=== PATIENT | female | born 1980 | race Caucasian/White ===

== ENCOUNTER 2019-08-06 10:17 | Emergency (ER) | payer BC, OTHER ==
[2019-08-06 10:26] VITALS: BP 122/82; PULSE 99; RESP 18; TEMP 97.7
[2019-08-06] MEDS ORDERED: SODIUM CHLORIDE 0.9% 1,000 ML IV STA (10:37)
[2019-08-06 11:16] LABS: Basophils % (A) 0 %; Eosinophils # (A) 0.1 k/uL (0-0.7); Eosinophils % (A) 1 %; HCT 48.2 % (34.0-46.0); HGB 16.4 gm/dL (11.4-16.0); Lymphocytes # (A) 1.8 k/uL (1.0-4.8); Lymphocytes % (A) 23 %; MCH 30.6 pg (25.0-35.0); MCHC 34.1 g/dL (31.0-37.0); MCV 89.7 fL (80.0-100.0); Monocytes # (A) 0.2 k/uL (0-1.0); Monocytes % (A) 3 %; Neutrophils # (A) 5.6 k/uL (1.3-7.7); Neutrophils % (A) 71 %; Platelet Count 235 k/uL (150-450); RBC 5.37 m/uL (3.80-5.40); RDW 12.3 % (11.5-15.5); WBC 7.8 k/uL (3.8-10.6)
--- NOTE | 2019-08-06 11:22 | ED ---
General Adult HPI - General Source: patient, RN notes reviewed Mode of arrival: wheelchair Limitations: no limitations <Chapo Henriquez - Last Filed: 08/06/19 12:38> <Shawna Mcnamara - Last Filed: 08/06/19 23:37> - General Chief complaint: Weakness Stated complaint: MRSA Time Seen by Provider: 08/06/19 10:28 - History of Present Illness Initial comments: 39-year-old female without significant past medical history presents to the emergency department for chief complaint of rash and weakness. Patient states that she has and diagnosed with MRSA on her skin. This is on her legs and abdomen. States that she saw her primary care provider who started her on an unknown antibiotic but it did not help. Patient therefore started on minocycline 4 days ago. States she still has these symptoms. States she is now having intermittent chills but denies ever checking a temperature. She is also having some nausea and vomiting and diarrhea. The symptoms are intermittently. She thinks the MRSA is making her weak. Patient would like further evaluation. Patient has no other complaints at this time including shortness of breath, chest pain, abdominal pain, headache, or visual changes.s (Chapo Henriquez) - Related Data Previous Rx's Medication Instructions Recorded Permethrin 5% Cream [Elimite] 1 applic TOPICAL ONCE #1 tube 08/06/19 Allergies Allergy/AdvReac Type Severity Reaction Status Date / Time No Known Allergies Allergy Verified 12/31/13 20:47 Review of Systems ROS Other: All systems not noted in ROS Statement are negative. <Chapo Henriquez - Last Filed: 08/06/19 12:38> ROS Other: All systems not noted in ROS Statement are negative. <Shawna Mcnamara - Last Filed: 08/06/19 23:37> ROS Statement: Those systems with pertinent positive or pertinent negative responses have been documented in the HPI. Past Medical History Additional Past Medical History / Comment(s): ovarian cancer History of Any Multi-Drug Resistant Organisms: MRSA Past Surgical History: Hysterectomy, Tubal Ligation Smoking Status: Current every day smoker Past Alcohol Use History: None Reported Past Drug Use History: Marijuana <Chapo Henriquez - Last Filed: 08/06/19 12:38> General Exam Limitations: no limitations General appearance: alert, in no apparent distress Head exam: Present: atraumatic, normocephalic, normal inspection Eye exam: Present: normal appearance ENT exam: Present: normal exam, mucous membranes moist Neck exam: Present: normal inspection. Absent: tenderness, meningismus, lymphadenopathy Respiratory exam: Present: normal lung sounds bilaterally. Absent: respiratory distress, wheezes, rales, rhonchi, stridor Cardiovascular Exam: Present: regular rate, normal rhythm, normal heart sounds. Absent: systolic murmur, diastolic murmur, rubs, gallop, clicks GI/Abdominal exam: Present: soft, normal bowel sounds. Absent: distended, tenderness, guarding, rebound, rigid Skin exam: Present: other (Small erythematous excoriations noted on abdomen as well as legs. No evidence of abscesses. No purulent drainage.) <Chapo Henriquez - Last Filed: 08/06/19 12:38> Course Vital Signs 08/06/19 10:18 Temperature 97.7 F Pulse Rate 99 Respiratory 18 Rate Blood Pressure 122/82 O2 Sat by Pulse 100 Oximetry Medical Decision Making - Lab Data Result diagrams: 08/06/19 10:55 08/06/19 10:55 <Chapo Henriquez - Last Filed: 08/06/19 12:38> - Lab Data Result diagrams: 08/06/19 10:55 08/06/19 10:55 <Shawna Mcnamara - Last Filed: 08/06/19 23:37> - Medical Decision Making Vitals are stable. Patient has excoriations to the abdomen and legs. States that it is pruritic. Patient is on minocycline at this time. She was totally primary care it is MRSA but the antibiotics do not seem to be helping. Patient states she does feel a little bit weak and nauseous. CBC CMP unremarkable. Urinalysis unremarkable. Given erythematous lesions, excoriations at this point I think it is reasonable to try permethrin to treat scabies. She should continue the minocycline. She should follow up with dermatology in 1-2 days. This was discussed with her. She'll return here if she has any worsening symptoms. is noted to have the same rash. (Chapo Henriquez) I was available for consultation in the emergency department. The history and physical exam were done by the midlevel provider. I was consulted for this patients care. I reviewed the case with the midlevel provider and based on their presentation of the patient, I agree with the assessment, medical decision making and plan of care as documented. Chart was dictated using [employer] dictation software. Attempts were made to correct any dictation errors however some typographical errors may persist. (Shawna Mcnamara) - Lab Data Lab Results 08/06/19 08/06/19 08/06/19 Range/Units 10:55 10:55 10:55 WBC 7.8 (3.8-10.6) k/uL RBC 5.37 (3.80-5.40) m/uL Hgb 16.4 H (11.4-16.0) gm/dL Hct 48.2 H (34.0-46.0) % MCV 89.7 (80.0-100.0) fL MCH 30.6 (25.0-35.0) pg MCHC 34.1 (31.0-37.0) g/dL RDW 12.3 (11.5-15.5) % Plt Count 235 (150-450) k/uL Neutrophils % 71 % Lymphocytes % 23 % Monocytes % 3 % Eosinophils % 1 % Basophils % 0 % Neutrophils # 5.6 (1.3-7.7) k/uL Lymphocytes # 1.8 (1.0-4.8) k/uL Monocytes # 0.2 (0-1.0) k/uL Eosinophils # 0.1 (0-0.7) k/uL Basophils # 0.0 (0-0.2) k/uL Sodium 140 (137-145) mmol/L Potassium 3.8 (3.5-5.1) mmol/L Chloride 106 (98-107) mmol/L Carbon Dioxide 25 (22-30) mmol/L Anion Gap 9 mmol/L BUN 18 H (7-17) mg/dL Creatinine 0.57 (0.52-1.04) mg/dL Est GFR (CKD-EPI)AfAm >90 (>60 ml/min/1.73 sqM) Est GFR (CKD-EPI)NonAf >90 (>60 ml/min/1.73 sqM) Glucose 105 H (74-99) mg/dL Plasma Lactic Acid Parviz 1.3 (0.7-2.0) mmol/L Calcium 9.8 (8.4-10.2) mg/dL Magnesium 1.7 (1.6-2.3) mg/dL Total Bilirubin 0.5 (0.2-1.3) mg/dL AST 16 (14-36) U/L ALT 15 (9-52) U/L Alkaline Phosphatase 66 (38-126) U/L Total Protein 7.0 (6.3-8.2) g/dL Albumin 4.4 (3.5-5.0) g/dL Urine Color Urine Appearance (Clear) Urine pH (5.0-8.0) Ur Specific Channing (1.001-1.035) Urine Protein (Negative) Urine Glucose (UA) (Negative) Urine Ketones (Negative) Urine Blood (Negative) Urine Nitrite (Negative) Urine Bilirubin (Negative) Urine Urobilinogen (<2.0) mg/dL Ur Leukocyte Esterase (Negative) 08/06/19 Range/Units 11:44 WBC (3.8-10.6) k/uL RBC (3.80-5.40) m/uL Hgb (11.4-16.0) gm/dL Hct (34.0-46.0) % MCV (80.0-100.0) fL MCH (25.0-35.0) pg MCHC (31.0-37.0) g/dL RDW (11.5-15.5) % Plt Count (150-450) k/uL Neutrophils % % Lymphocytes % % Monocytes % % Eosinophils % % Basophils % % Neutrophils # (1.3-7.7) k/uL Lymphocytes # (1.0-4.8) k/uL Monocytes # (0-1.0) k/uL Eosinophils # (0-0.7) k/uL Basophils # (0-0.2) k/uL Sodium (137-145) mmol/L Potassium (3.5-5.1) mmol/L Chloride (98-107) mmol/L Carbon Dioxide (22-30) mmol/L Anion Gap mmol/L BUN (7-17) mg/dL Creatinine (0.52-1.04) mg/dL Est GFR (CKD-EPI)AfAm (>60 ml/min/1.73 sqM) Est GFR (CKD-EPI)NonAf (>60 ml/min/1.73 sqM) Glucose (74-99) mg/dL Plasma Lactic Acid Parviz (0.7-2.0) mmol/L Calcium (8.4-10.2) mg/dL Magnesium (1.6-2.3) mg/dL Total Bilirubin (0.2-1.3) mg/dL AST (14-36) U/L ALT (9-52) U/L Alkaline Phosphatase (38-126) U/L Total Protein (6.3-8.2) g/dL Albumin (3.5-5.0) g/dL Urine Color Yellow Urine Appearance Clear (Clear) Urine pH 6.0 (5.0-8.0) Ur Specific Channing 1.015 (1.001-1.035) Urine Protein Negative (Negative) Urine Glucose (UA) Negative (Negative) Urine Ketones Negative (Negative) Urine Blood Negative (Negative) Urine Nitrite Negative (Negative) Urine Bilirubin Negative (Negative) Urine Urobilinogen <2.0 (<2.0) mg/dL Ur Leukocyte Esterase Negative (Negative) Disposition Is patient prescribed a controlled substance at d/c from ED?: No Time of Disposition: 12:39 <Chapo Henriquez P - Last Filed: 08/06/19 12:38> <Shawna Mcnamara - Last Filed: 08/06/19 23:37> Clinical Impression: Rash Disposition: HOME SELF-CARE Condition: Good Instructions (If sedation given, give patient instructions): Scabies (ED), Acute Rash (ED) Additional Instructions: Please use permethrin cream as directed. Apply from neck down and leave on for 8-12 hours before washing off. Follow up with dermatology as well as primary care in the next 1-2 days. Return to the emergency department if you have any worsening symptoms. Prescriptions: Permethrin 5% Cream [Elimite] 1 applic TOPICAL ONCE #1 tube Referrals: Sarita Hester MD [Primary Care Provider] - 1-2 days
[2019-08-06 11:24] LABS: ALT 15 U/L (9-52); AST 16 U/L (14-36); African American GFR (CKD) >90 (>60 ml/min/1.73 sqM); Albumin 4.4 g/dL (3.5-5.0); Alkaline Phosphatase 66 U/L (38-126); Anion Gap 9 mmol/L; Blood Urea Nitrogen 18 mg/dL (7-17); Calcium 9.8 mg/dL (8.4-10.2); Carbon Dioxide 25 mmol/L (22-30); Chloride 106 mmol/L (98-107); Glucose 105 mg/dL (74-99); Magnesium 1.7 mg/dL (1.6-2.3); Non-African American GFR(CKD) >90 (>60 ml/min/1.73 sqM); Potassium 3.8 mmol/L (3.5-5.1); Sodium 140 mmol/L (137-145); Total Bilirubin 0.5 mg/dL (0.2-1.3)
[2019-08-06 12:08] LABS: Appearance,Urine Clear (Clear); Bilirubin,Urine Negative (Negative); Blood,Urine Negative (Negative); Color,Urine Yellow; Glucose,Urine (UA) Negative (Negative); Ketones,Urine Negative (Negative); Leukocyte Esterase,Urine Negative (Negative); Nitrite,Urine Negative (Negative); Protein,Urine Negative (Negative); Specific Gravity,Urine 1.015 (1.001-1.035); Urobilinogen,Urine <2.0 mg/dL (<2.0)
== END 2019-08-06 12:58 | disposition home or self-care (01) ==
LOC: EC 10:17
DX: R21 Rash and other nonspecific skin eruption (principal); R53.1 Weakness; R11.2 Nausea with vomiting, unspecified; R19.7 Diarrhea, unspecified; R68.83 Chills (without fever); F17.200 Nicotine dependence, unspecified, uncomplicated; Z85.43 Personal history of malignant neoplasm of ovary
CPT/HCPCS: 36415; 80053; 81003; 83605; 83735; 85025; 96360; 99284

== ENCOUNTER 2019-10-09 07:43 | Day surgery (SDC) | payer OTHER ==
[2019-10-07 15:43] VITALS: BMI 17.5
[~2019-10-09 07:43] MED LIST: DEXAMETHASONE SOD PHOSPHATE 10 MG/ML 1 ML VIAL IV ONE; LACTATED RINGERS 1,000 ML IV SCH; LIDOCAINE 1% 20 ML VIAL (10MG/ML) FOR IV START INTRADERMA PRN; MOXIFLOXACIN HCL 0.5% DROPS 3 ML BTL OP ONE; ONDANSETRON 4 MG/2 ML VIAL IVP ONE; TETRACAINE 0.5% OPHTH (PF) DROPS 4 ML BTL OP ONE; TIMOLOL 0.5% OPHTH DROPS 5 ML BTL OP ONE
[2019-10-09 08:32] VITALS: TEMP 98.1
[2019-10-09] MEDS: PHENYLEPHRINE 2.5% OPHTH DRP 2ML OP NR ×3 (08:34→08:46)
[2019-10-09] MEDS: CYCLOPENTOLATE 1% OPHTH SOLN 2 ML BTL OP ONE ×3 (08:37→08:49)
[2019-10-09] MEDS ORDERED: BALANCED SALT IRRIG SOLN COMB2 15 ML IRRIG.SOLN IRRIGATION ONE (09:21)
[2019-10-09] MEDS ORDERED: MIDAZOLAM 2 MG/2 ML VIAL ONE (09:29)
[2019-10-09] MEDS ORDERED: fentaNYL (PF) 50 MCG/ML 2 ML AMP ONE (09:29)
[2019-10-09] MEDS ORDERED: EPINEPHrine (PF) 0.3 ML in BALANCED SALT IRRIG SOLN COMB2 500 ML IRRIGATION ONE (09:33)
[2019-10-09] MEDS ORDERED: HYALURONATE SODIUM INTRAOCULAR 1 EACH SYRINGE (12MG/ML) INTRAOCULA ONE (09:34)
[2019-10-09] MEDS ORDERED: LIDOCAINE 1% (PF) 10MG/ML VIAL MISCELLANE ONE (09:35)
[2019-10-09] MEDS ORDERED: BALANCED SALT IRRIG SOLN COMB2 15 ML IRRIG.SOLN INTRAOCULA ONE (09:35)
[2019-10-09] MEDS ORDERED: EPINEPHrine 1 MG/ML 1 ML AMP IRRIGATION ONE (09:44)
--- NOTE | 2019-10-09 09:58 | P.OP ---
Date of Procedure: 10/09/19 Preoperative Diagnosis: NS & CS & PSC Postoperative Diagnosis: samed Procedure(s) Performed: PIOL, OS Implants: MX60 23.50 Anesthesia: MAC Surgeon: Edson Baldwin Pathology: none sent Condition: stable Disposition: same day Indications for Procedure: blurry vision Operative Findings: no complications
[2019-10-09 10:20] VITALS: BP 106/71; PULSE 70; RESP 18
--- NOTE | 2019-10-10 06:27 | OP ---
OPERATIVE REPORT DATE OF SURGERY: October 09, 2019 SURGEON: Dr. Edson Baldwin PREOPERATIVE DIAGNOSIS: Nuclear sclerosis, cortical sclerosis, posterior subcapsular cataract. POSTOPERATIVE DIAGNOSIS: Nuclear sclerosis, cortical sclerosis, posterior subcapsular cataract. OPERATION: Phacoemulsification of cataract and intraocular lens implant of the left eye. ESTIMATED BLOOD LOSS: Zero. SPECIMEN TAKEN: None. NARRATIVE: After obtaining the appropriate consent, the patient was brought to the Operating Room where the patient was placed under cardiac monitoring and prepped and draped in the usual sterile manner. At the 5 o'clock position a 15 degree super sharp blade was used to create a paracentesis followed by instillation of 1% Xylocaine MPF 50:50 mix with BSS into the anterior chamber. Due to an incompletely dilated pupil, epinephrine MPF, 1:1000, 1:1 mixed with BSS, was instilled into the anterior chamber. Once beetter dilated, Amvisc was instilled to stabilize the anterior chamber. At the 3 o'clock position a self- sealing corneal flap incision was created using 2.8 mm nida keratome. A cystotome was used to initiate a continuous tear capsulorrhexis which was completed with the Utrata forceps. A Binkhorst cannula was used to hydrodissect the lens nucleus followed by hydrodelineation. Phacoemulsification of the lens was performed utilizing phaco chop in 5.46 seconds at 8% power. The remaining cortical material was removed using the irrigation aspiration mode followed by additional 1% Xylocaine MPF into the anterior chamber followed by viscoelastic to stabilize the capsular bag. A [employer]ch [employer] MX60E 23.5 diopters posterior chamber lens was placed into the capsular bag without difficulty. The remaining viscoelastic material was removed from the anterior chamber with the irrigation/aspiration. Balanced salt solution was used to normalize the intraocular pressure. The incision was checked for watertight integrity. The patient then received two drops of 0.5% timolol followed by two drops Vigamox, was lightly patched and shielded in the usual manner. There were no complications from the procedure. The patient tolerated the procedure well and was returned to recovery in good condition. MMODL / IJN: [id number] / [facility]
== END 2019-10-09 10:40 | disposition home or self-care (01) ==
LOC: OR 07:43
PROVIDERS: ATTEND Ophthalmology
DX: H25.813 Combined forms of age-related cataract, bilateral (principal); H52.13 Myopia, bilateral; H52.4 Presbyopia; M79.7 Fibromyalgia; F17.210 Nicotine dependence, cigarettes, uncomplicated; Z97.3 Presence of spectacles and contact lenses; Z85.43 Personal history of malignant neoplasm of ovary; Z98.51 Tubal ligation status; Z83.518 Family history of other specified eye disorder; Z82.49 Family history of ischemic heart disease and other diseases of the circulatory system; Z80.3 Family history of malignant neoplasm of breast; Z80.1 Family history of malignant neoplasm of trachea, bronchus and lung; Z83.3 Family history of diabetes mellitus; Z83.49 Family history of other endocrine, nutritional and metabolic diseases
CPT/HCPCS: 66984; V2632; J2250; J0171 ×2; J3010; J2001

== ENCOUNTER 2019-11-06 07:40 | Day surgery (SDC) | payer OTHER ==
[~2019-11-06 07:40] MED LIST changes: -DEXAMETHASONE SOD PHOSPHATE 10 MG/ML 1 ML VIAL IV ONE; +LIDOCAINE 1% (10MG/ML) FOR IV START INTRADERMA PRN; -LIDOCAINE 1% 20 ML VIAL (10MG/ML) FOR IV START INTRADERMA PRN; -ONDANSETRON 4 MG/2 ML VIAL IVP ONE
[2019-11-06] MEDS: CYCLOPENTOLATE 1% OPHTH SOLN 2 ML BTL OP ONE ×3 (07:59→08:15)
[2019-11-06] MEDS: PHENYLEPHRINE 2.5% OPHTH DRP 2ML OP NR ×3 (08:05→08:18)
[2019-11-06 08:27] VITALS: TEMP 98.4
[2019-11-06] MEDS ORDERED: MIDAZOLAM 2 MG/2 ML VIAL ONE (08:53)
[2019-11-06] MEDS ORDERED: fentaNYL (PF) 50 MCG/ML 2 ML AMP ONE (08:53)
[2019-11-06] MEDS ORDERED: HYALURONATE SODIUM INTRAOCULAR 1 EACH SYRINGE (12MG/ML) INTRAOCULA ONE (09:06)
[2019-11-06] MEDS ORDERED: LIDOCAINE 1% (PF) 10MG/ML VIAL SQ ONE (09:07)
[2019-11-06] MEDS ORDERED: BALANCED SALT IRRIG SOLN COMB2 15 ML IRRIG.SOLN IRRIGATION ONE (09:07)
[2019-11-06] MEDS ORDERED: MOXIFLOXACIN HCL 0.5% DROPS 3 ML BTL RIGHT EYE ONE (09:07)
[2019-11-06] MEDS ORDERED: TIMOLOL 0.5% OPHTH SOLN (PF) 0.2 ML DROPERETTE RIGHT EYE ONE (09:07)
[2019-11-06] MEDS ORDERED: EPINEPHrine (PF) 0.3 ML in BALANCED SALT IRRIG SOLN COMB2 500 ML IRRIGATION ONE (09:10)
--- NOTE | 2019-11-06 09:28 | P.OP ---
Date of Procedure: 11/06/19 Preoperative Diagnosis: NS & CS & PSc Postoperative Diagnosis: same Procedure(s) Performed: PIOL< OD Implants: MX60 22.50 Anesthesia: MAC Surgeon: Edson Baldwin Pathology: none sent Condition: stable Disposition: same day Indications for Procedure: blurry vision Operative Findings: no complications
[2019-11-06 09:49] VITALS: BP 100/66; PULSE 69; RESP 16
--- NOTE | 2019-11-07 06:40 | OP ---
OPERATIVE REPORT DATE OF SURGERY: November 06, 2019. SURGEON: Dr. Edson Baldwin PROCEDURE: Phacoemulsification of cataract and intraocular lens implant of the right eye. PREOPERATIVE DIAGNOSES: Nuclear sclerosis, cortical sclerosis and posterior subcapsular cataract. POSTOPERATIVE DIAGNOSES: Nuclear sclerosis, cortical sclerosis and posterior subcapsular cataract. ESTIMATED BLOOD LOSS: Zero. SPECIMEN TAKEN: None. NARRATIVE: After obtaining the appropriate consent, the patient was brought to the Operating Room where the patient was placed under cardiac monitoring and prepped and draped in the usual sterile manner. At the 11 o'clock a 15 degree super sharp blade was used to create a paracentesis followed by instillation of 1% Xylocaine MPF 50:50 mix with BSS into the anterior chamber. This was followed by Amvisc to stabilize the anterior chamber. At the 9 o'clock a self-sealing corneal flap incision was created using 2.8 mm nida keratome. A cystotome was used to initiate a continuous tear capsulorrhexis which was completed with the Utrata forceps. A Binkhorst cannula was used to hydrodissect the lens nucleus followed by hydrodelineation. Phacoemulsification of the lens was performed utilizing phaco chop in 1.33 seconds at 9% power. The remaining cortical material was removed using the irrigation aspiration mode followed by additional 1% Xylocaine MPF into the anterior chamber followed by viscoelastic to stabilize the capsular bag. A [employer]ch [employer] Lomb MX60E 22.5 diopters posterior chamber lens was placed into the capsular bag without difficulty. The remaining viscoelastic material was removed from the anterior chamber with the irrigation/aspiration. Balanced salt solution was used to normalize the intraocular pressure. The incision was checked for watertight integrity. The patient then received two drops of 0.5% timolol followed by two drops Vigamox, was lightly patched and shielded in the usual manner. There were no complications from the procedure. The patient tolerated the procedure well and was returned to recovery in good condition. MMODL / IJN: [id number] /
== END 2019-11-06 10:05 | disposition home or self-care (01) ==
LOC: OR 07:40
PROVIDERS: ATTEND Ophthalmology
DX: H25.11 Age-related nuclear cataract, right eye (principal); H25.011 Cortical age-related cataract, right eye; H25.041 Posterior subcapsular polar age-related cataract, right eye; H52.13 Myopia, bilateral; H52.4 Presbyopia; H54.7 Unspecified visual loss; Z96.1 Presence of intraocular lens; F17.200 Nicotine dependence, unspecified, uncomplicated; M79.7 Fibromyalgia; R51 Headache; R41.3 Other amnesia; Z90.710 Acquired absence of both cervix and uterus; Z98.51 Tubal ligation status; Z85.43 Personal history of malignant neoplasm of ovary; Z83.518 Family history of other specified eye disorder; Z80.1 Family history of malignant neoplasm of trachea, bronchus and lung; Z80.3 Family history of malignant neoplasm of breast; Z83.3 Family history of diabetes mellitus; Z83.49 Family history of other endocrine, nutritional and metabolic diseases; Z79.899 Other long term (current) drug therapy
CPT/HCPCS: 66984; V2632; J2250; J0171; J3010; J2001